=== PATIENT | female | born 1980 | race Caucasian/White ===

== ENCOUNTER 2016-08-25 10:53 | Inpatient (IN) | payer MEDICAID ==
[2016-02-04 10:45] VITALS: BMI 22.3
[2016-08-25] MEDS ORDERED: Magnesium Sulfate 4 gm/100 ml 4 GM/100 ML BAG IVPB ONE (11:27)
[2016-08-25] MEDS ORDERED: Labetalol 25mg/5ml Syringe IVP STA (11:29)
[2016-08-25] MEDS ORDERED: Magnesium Sulfate 20 gm 500 ML IV SCH (11:30)
[2016-08-25] MEDS ORDERED: Magnesium Sulfate 20 gm 500 ML IV ONE ×3 (11:39→21:41)
[2016-08-25 12:34] LABS: BASO % 0.5 % (0.0-2.0); EOS # 0.1 K/uL (0.0-0.7); EOS % 1.2 % (0.0-4.0); HEMATOCRIT 33.6 % (34.0-47.0); LYMPH # 2.5 K/uL (1.0-4.3); LYMPH % 27.6 % (20.0-40.0); MEAN CELL VOLUME 91.4 fL (81.0-99.0); MEAN CORPUSCULAR HEMOGLOBIN 30.5 pg (27.0-31.0); MEAN CORPUSCULAR HGB CONC 33.3 g/dL (33.0-37.0); MEAN PLATELET VOLUME 12.7 fL (7.2-11.7); MONO # 0.6 K/uL (0.0-0.8); MONO % 7.1 % (0.0-10.0); RED CELL DISTRIBUTION WIDTH 14.3 % (11.5-14.5); WHITE BLOOD COUNT 9.1 K/uL (4.8-10.8)
[2016-08-25 12:42] LABS: CHLORIDE 104 mmol/L (98-107); POTASSIUM 4.1 mmol/L (3.6-5.2); SODIUM 135 mmol/L (132-148)
[2016-08-25 12:44] LABS: BILIRUBIN,TOTAL 0.7 mg/dL (0.2-1.3); GFR AFRICAN-AMERICAN > 60
[2016-08-25 12:45] LABS: ALKALINE PHOSPHATASE 167 U/L (38-126); ALT/SGPT 17 U/L (9-52); AST/SGOT 41 U/L (14-36); BLOOD UREA NITROGEN 7 mg/dL (7-17); CALCIUM 7.9 mg/dl (8.6-10.4); CARBON DIOXIDE 21 mmol/L (22-30); GLUCOSE,RANDOM 63 mg/dL (65-105); INR 0.9; TOTAL PROTEIN 6.5 g/dL (6.3-8.3); URIC ACID 5.3 mg/dL (2.2-7.5)
--- NOTE | 2016-08-25 12:50 | OBHP ---
Datetime: 08/25/2016 11:30 IP Adm Impression: , intrauterine IP Adm Impression Other: elevated bp IP Admit Plan: Admit to unit Admit Comment, IP Provider: chief compalint-abdominal pain HPI 36 y/o at 36.2 wga with c/o abdominal pain which started this morning.states that she has nausea and vomiting yetserday and also had headache at that time.denies any headache or vision zarco es now.states she has surendra discomfort.has only had water since morning Patient states that she feels abdominal discomfort.does not feelks it as contractions denies vaginal bleeding or loss of fluid.reports active movement course uncompicated; PMH denies PSH denies OBGYN HX ' NVDX2; topx1 Social hx denies tobacco,alcohol or illicit drug use Exam see exam section A/P 36 y/o at 36.2wga with elevated bp .No active labor -admit -start magnesium for seizure prophylaxis -antihypertesnive.labetalol 20mg iv push if available. -pih labs -continuous monitoring Dr San aware Pelvic Type - PN: Adequate Extremities - PN: Normal Abdomen - PN: Normal Back - PN: Normal Lungs - PN: Normal Heart - PN: Normal Neurologic - PN: Normal General - PN: Normal Contraction Comments Provider: none Gestation - Est Wks by US: 36.2 EGA AdmitDate IP: 36.2 Vital Signs Provider: Reviewed Vital Signs Provider Details: initial bp on arrival 160-170s/100-110s IP Chief Complaint: Other FHR Category Provider Fetus A: Category I Dilatation, Provider: 0 Effacement, Provider: thick Station, Provider: high Genitourinary Exam: Normal DTRs - PN: Normal
[2016-08-25 13:18] LABS: RBC URINE 9 /hpf (0-3); URINE BACTERIA MOD (<OCC); URINE BILIRUBIN NEGATIVE (NEGATIVE); URINE BLOOD NEGATIVE (NEGATIVE); URINE COLOR Yellow (YELLOW); URINE GLUCOSE (UA) NORMAL (Normal); URINE KETONE NEGATIVE (NEGATIVE); URINE LEUKOCYTE ESTERASE 2+ Leu/uL (Negative); URINE PROTEIN 2+ mg/dL (NEGATIVE); URINE UROBILINOGEN NORMAL mg/dL (0.2-1.0); WBC URINE 9 /hpf (0-5)
--- NOTE | 2016-08-25 13:44 | OBADHP ---
Datetime: 08/25/2016 11:30 IP Adm Impression Other: elevated bp Admit Comment, IP Provider: chief compalint-abdominal pain HPI 36 y/o at 36.2 wga with c/o abdominal pain which started this morning.states that she has nausea and vomiting yetserday and also had headache at that time.denies any headache or vision zarco es now.states she has surendra discomfort.has only had water since morning Patient states that she feels abdominal discomfort.does not feelks it as contractions denies vaginal bleeding or loss of fluid.reports active movement course uncompicated; PMH denies PSH denies OBGYN HX ' NVDX2; topx1 Social hx denies tobacco,alcohol or illicit drug use Exam see exam section A/P 36 y/o at 36.2wga with elevated bp .No active labor -admit -start magnesium for seizure prophylaxis -antihypertesnive.labetalol 20mg iv push if available. -pih labs -continuous monitoring Dr San aware agree with above Kalin San Pelvic Type - PN: Adequate Extremities - PN: Normal Abdomen - PN: Abnormal Back - PN: Normal Lungs - PN: Normal Heart - PN: Normal Neurologic - PN: Normal General - PN: Normal Contraction Comments Provider: none Comments, ACOG Physical Exam: +RUQ tenderness Gestation - Est Wks by US: 36.2 Vital Signs Provider: Reviewed Vital Signs Provider Details: initial bp on arrival 160-170s/100-110s IP Chief Complaint: Other FHR Category Provider Fetus A: Category I Dilatation, Provider: 0 Effacement, Provider: thick Station, Provider: high Genitourinary Exam: Normal DTRs - PN: Normal EGA AdmitDate IP: 35.3 IP Adm Impression: , intrauterine IP Admit Plan: Admit to unit Datetime: 06/16/2016 11:55 Breast - PN: Not Done Thyroid - PN: Not Done HEENT - PN: Normal FHR - Baseline A Provider: 145 NICHD Variability Prov Fetus A: Moderate 6-25bpm NICHD Accel Fetus A IP Provider: 10X10 NICHD Decel Fetus A IP Provider: None
[2016-08-25] MEDS ORDERED: Morphine 1 mg/ml preservative-free Inj(Duramorph) ONE (13:49)
[2016-08-25] MEDS ORDERED: Phenylephrine 10 mg/ml Inj ONE (13:49)
[2016-08-25] MEDS ORDERED: Sodium Citrate/Citric Acid 15 ml Sol PO ONE (13:50)
--- NOTE | 2016-08-25 15:17 | OBDS ---
DELIVERY PERSONNEL Delivery Doctor: Bita San MD Scrub Nurse: Manisha Montgomery OBT Special Tester: Tameka May RN Anesthesiologist: AD MATERNAL INFORMATION Delivery Anesthesia: Spinal Medications in Delivery: pitocin 20 Estimated Blood Loss (ml): 70 Placenta Cultured: Yes Maternal Complications: Other Other Maternal Complications: preeclampcia Provider Comments: live male ifnat DARA position, body cord x 1, no nuchal cord. apgars 8,9 weight of 4lb 8 ounces, normal tubes adn ovaries bilatearlly. label press operator present for delivery ebl 700ml LABOR SUMMARY EDC: 09/26/2016 00:00 No. Babies in Womb: 1 Attempted: No Labor Anesthesia: None LABOR INFORMATION Oxytocin: N/A Group B Beta Strep: Not Done Antibiotics # of Doses: 1 Antibiotics Time of Last Dose: 13:55 Steroids Given: None Reason Steroids Not Administered: Not Applicable MEMBRANES Membranes Rupture Method: Artificial Rupture of Membranes: 08/25/2016 14:16 Length of Rupture (hrs): 0.00 Amniotic Fluid Color: Clear Amniotic Fluid Amount: Moderate Amniotic Fluid Odor: Normal STAGES OF LABOR Stage 3 hrs: 0 Stage 3 min: 1 VAGINAL DELIVERY Episiotomy: None Laceration Extension: N/A Laceration Type: None CSECTION DELIVERY Primary Indication: severe preeclampcia Secondary Indication: N/A CSection Urgency: Emergency CSection Incidence: Primary Labor: No Labor Elective: Nonelective CSection Incision: Lower Uterine Transverse BABY A INFORMATION Delivery Date/Time: 08/25/2016 14:16 Method of Delivery: Vaginal Born in Route : No : N/A Forceps: N/A Vacuum Extraction: N/A Shoulder Dystocia : No SHOULDER DYSTOCIA BABY A Infant Delivery Date/Time: 08/25/2016 14:16 PRESENTATION/POSITION BABY A Presentation: Cephalic Cephalic Presentation: Vertex Breech Presentation: N/A PLACENTA INFORMATION BABY A Placenta Delivery Time : 08/25/2016 14:17 Placenta Method of Delivery: Manual Removal Placenta Status: Delivered SCORES BABY A Heart Rate 1 min: >100 bpm Resp Effort 1 min: Good Cry Reflex Irritability 1 min: Cough or Sneeze or Pulls Away Muscle Tone 1 min: Some Flexion of Extremities Color 1 min: Body [place], Extremities Blue Resuscitation Effort 1 min: Tactile Stimulation SCORE 1 MIN: 8 Heart Rate 5 min: >100 bpm Resp Effort 5 min: Good Cry Reflex Irritability 5 min: Cough or Sneeze or Pulls Away Muscle Tone 5 min: Active Motion Color 5 min: Body [place], Extremities Blue SCORE 5 MIN: 9 INFORMATION BABY A Gestational Age at Delivery: 36.2 Gestational Status: Infant Outcome : Liveborn Condition : Stable Infant Sex: Male IDENTIFICATION/MEDS BABY A ID Band Number: [id number] ID Band Location: Left Leg; Left Arm Sensor Applied: Yes Sensor Number: [id number] Sensor Location : Cord Clamp WEIGHT/LENGTH BABY A Birthweight (gms): 2045 Weight (lb): 4 Weight (oz): 8 Infant Length Inches: 18.25 Infant Length cms: 46.4 CORD INFORMATION BABY A No. Cord Vessels: 3 Nuchal Cord : Around Neck x1, Loose Cord Blood Taken: Yes Infant Suction: Mouth; Nose ASSESSMENT BABY A Infant Complications: None Physical Findings at Delivery: Within Normal Limits Respirations: Appears Normal Mental Health Practitioner/ALS Called : No Infant Care By: dr andrews Transferred To: Nursery
--- NOTE | 2016-08-25 15:19 | PCM.SURG1 ---
Surgeon's Initial Post Op Note - Surgeon's Notes Surgeon: Nataly Sna MD Parking Meter Installer: Rohith Mohan MD Type of Anesthesia: Spinal Pre-Operative Diagnosis: with severe preeclampsia, remote from delivery Operative Findings: live male infant , body cord x 1 easily reducted, normal tubes and ovaries bilaterally. pediatricina present for delivery. apgars 8,9 weight of 4lb [address] Rohith Mohan was surgical technologist and essential in gainign entry, retraction, expsoure, ehlping to delivery the baby, closing all layers, obtaining hemotasis, holding the bladder blade. Post-Operative Diagnosis: same as above Operation Performed: Primary Low transverse Cesearen section Specimen/Specimens Removed: placenta Estimated Blood Loss: EBL {In ML}: 700 Blood Products Given: N/A Drains Used: No Drains Post-Op Condition: Good Date of Surgery/Procedure: 08/25/16 Time of Surgery/Procedure: 14:00
--- NOTE | 2016-08-25 15:56 | OP ---
PROCEDURE DATE: 08/25/2016 SURGEON: Dr. Nataly San. TEAM SPORTS SALES ASSOCIATE: Dr. Rohith Mohan. TYPE OF ANESTHESIA: Spinal. PREOPERATIVE DIAGNOSES: with severe preeclampsia, remote from delivery. POSTOPERATIVE DIAGNOSES: with severe preeclampsia, remote from delivery. OPERATIVE FINDINGS: Live male with a body cord x 1 easily reduced. Normal tubes and ovaries bilaterally. Moving Picture Operator present for delivery. Apgars 8 and 9. Weight of [address] Rohith Mohan was the assistant spa director and was essential in gaining entry, retraction, exposure , holding the bladder blade, delivering the baby, closing all layers, obtaining hemostasis. OPERATION PERFORMED: Primary low transverse section. SPECIMEN REMOVED: Placenta. ESTIMATED BLOOD LOSS: 700 mL. BLOOD PRODUCTS: None. COMPLICATIONS: None. DESCRIPTION OF PROCEDURE: The patient was taken to the operating room where she was given spinal ane sthesia after she was given magnesium. The patient was then prepped and draped in the usual normal s terile fashion, a timeout to confirm correct patient and correct procedure. Hollis was then introduce d into the bladder. The patient was given preoperative prophylactic antibiotics. The Pfannenstiel s kin incision was made with a scalpel and carried down to the underlying fascia. The fascia was incis ed in midline. Incision was extended laterally bluntly. The rectus muscles were then bluntly separa puma in the midline. Peritoneum identified, entered bluntly in a clear space. Incision extended late rally and inferiorly until there was good visualization of the bladder. The lower end of the Darrius was then inserted and the lower uterine segment was incised in a transverse fashion with the scalpel . The uterine incision was extended laterally bluntly. The surgeon's hand entered the uterine cavit y. The bladder blade was then removed. The infant's head was delivered atraumatically, no nuchal co rd was noted; followed by atraumatic delivery of the shoulders and the body. Body cord x 1 was noted and easily reduced. The umbilical cord was clamped and cut and the baby was handed off to the [facility] deck mechanic. Cord blood and cord gas was collected and sent x 2. The placenta was then delivere d manually. The uterus exteriorized, cleared of all clots and debris. The uterine incision was repa ired with 0 Vicryl in running continuous locked fashion, second layer with same suture was used to cl ose uterus in a running imbricated manner. The uterus was then returned to the abdomen. The paracol ic gutters were cleared of all clots and debris. The peritoneum was reapproximated and closed with 2 -0 chromic in a running continuous fashion. The rectus was reapproximated with 2-0 chromic in interr upted manner. The subcutaneous tissue was closed with 2-0 plain in interrupted manner. The skin was reapproximated and closed with 4-0 Monocryl in a running subcuticular fashion. At the end of the pr ocedure, all needle, sponge and instrument counts were noted to be correct x 2. The patient tolerate d the procedure well and was transferred to the recovery room in stable condition. Nataly San MD cc: [id number] TT: 08/25/2016 15:55:47 [place]
[2016-08-25] MEDS ORDERED: Morphine Monoject Barrel PCA 1mg/ml IV PRN (16:32)
[2016-08-25 19:14] LABS: BASO % 0.2 % (0.0-2.0); EOS % 0.2 % (0.0-4.0); HEMATOCRIT 38.7 % (34.0-47.0); LYMPH # 2.4 K/uL (1.0-4.3); LYMPH % 11.8 % (20.0-40.0); MEAN CORPUSCULAR HEMOGLOBIN 29.4 pg (27.0-31.0); MEAN PLATELET VOLUME 12.9 fL (7.2-11.7); MONO % 4.9 % (0.0-10.0); RED CELL DISTRIBUTION WIDTH 14.1 % (11.5-14.5)
[2016-08-25 19:34] LABS: CHLORIDE 99 mmol/L (98-107); POTASSIUM 4.1 mmol/L (3.6-5.2); SODIUM 135 mmol/L (132-148)
[2016-08-25 19:36] LABS: AST/SGOT 35 U/L (14-36); BILIRUBIN,TOTAL 0.6 mg/dL (0.2-1.3); CARBON DIOXIDE 24 mmol/L (22-30); GFR AFRICAN-AMERICAN > 60
[2016-08-25 19:37] LABS: ALKALINE PHOSPHATASE 167 U/L (38-126); ALT/SGPT 22 U/L (9-52); BLOOD UREA NITROGEN 5 mg/dL (7-17); CALCIUM 7.6 mg/dl (8.6-10.4); GLUCOSE,RANDOM 66 mg/dL (65-105); MAGNESIUM 4.8 mg/dL (1.6-2.3); TOTAL PROTEIN 6.1 g/dL (6.3-8.3); URIC ACID 5.1 mg/dL (2.2-7.5)
[2016-08-25] MEDS ORDERED: cefOXitin IV 2 gm in Dextrose 2 GM/50 ML BAG IVPB ONE (21:41)
[2016-08-25] MEDS: cefOXitin IV 2 gm in Dextrose 2 GM/50 ML BAG IVPB SCH (21:46)
[2016-08-25] MEDS: Magnesium Sulfate 20 gm 500 ML IV SCH (21:48)
[2016-08-26] MEDS ORDERED: cefOXitin IV 2 gm in Dextrose 2 GM/50 ML BAG IVPB ONE ×2 (05:44→13:24)
[2016-08-26] MEDS: cefOXitin IV 2 gm in Dextrose 2 GM/50 ML BAG IVPB SCH ×2 (05:50→13:37)
[2016-08-26] MEDS: Magnesium Sulfate 20 gm 500 ML IV SCH (07:30)
[2016-08-26] MEDS ORDERED: Magnesium Sulfate 20 gm 500 ML IV ONE (09:06)
[2016-08-26] MEDS ORDERED: Oxycodone/Acetaminophen 5/325 mg Tab ONE (10:27)
[2016-08-26] MEDS: Oxycodone/Acetaminophen 5/325 mg Tab PO PRN ×3 (10:30→23:17)
[2016-08-26 17:05] LABS: BASO % 0.1 % (0.0-2.0); EOS # 0.1 K/uL (0.0-0.7); EOS % 0.3 % (0.0-4.0); HEMATOCRIT 29.8 % (34.0-47.0); LYMPH # 1.9 K/uL (1.0-4.3); LYMPH % 12.2 % (20.0-40.0); MEAN CELL VOLUME 92.1 fL (81.0-99.0); MEAN CORPUSCULAR HEMOGLOBIN 30.1 pg (27.0-31.0); MEAN CORPUSCULAR HGB CONC 32.6 g/dL (33.0-37.0); MEAN PLATELET VOLUME 11.6 fL (7.2-11.7); MONO # 0.7 K/uL (0.0-0.8); MONO % 4.8 % (0.0-10.0); RED CELL DISTRIBUTION WIDTH 15.1 % (11.5-14.5); WHITE BLOOD COUNT 15.6 K/uL (4.8-10.8)
[2016-08-27] MEDS: Oxycodone/Acetaminophen 5/325 mg Tab PO PRN ×3 (05:01→21:13)
[2016-08-28] MEDS ORDERED: Labetalol 5 mg/ml Inj 20ML IVP STA (02:38)
[2016-08-28] MEDS: Oxycodone/Acetaminophen 5/325 mg Tab PO PRN ×4 (04:13→20:11)
[2016-08-28] MEDS: NIFEdipine 30 mg ER Tab PO SCH (13:18)
[2016-08-28 14:06] LABS: CHLORIDE 97 mmol/L (98-107)
[2016-08-28 14:07] LABS: POTASSIUM 3.9 mmol/L (3.6-5.2); SODIUM 133 mmol/L (132-148)
[2016-08-28 14:09] LABS: ALB/GLOB RATIO 0.8 (1.0-2.1); ALKALINE PHOSPHATASE 103 U/L (38-126); AST/SGOT 52 U/L (14-36); BILIRUBIN,TOTAL < 0.1 mg/dL (0.2-1.3); BLOOD UREA NITROGEN 5 mg/dL (7-17); CARBON DIOXIDE 31 mmol/L (22-30); GFR AFRICAN-AMERICAN > 60; GLUCOSE,RANDOM 77 mg/dL (65-105)
[2016-08-28 14:10] LABS: ALT/SGPT 33 U/L (9-52); CALCIUM 8.6 mg/dl (8.6-10.4)
--- NOTE | 2016-08-28 15:08 | CP.PCM.CON ---
History of Present Illness - History of Present Illness History of Present Illness: 36 yo F w/ no significant pmh, presented 3 days ago at 36 weeks gestation with abdominal pain, nausea/vomiting and headache; found to have elevated BP (160's- 170's/100's-110's) and 2+ proteinuria by dipstick; patient given IV Magnesium for seizure prophylaxis and subsequently underwent emergent the same day for severe pre-eclampsia; patient started on labetalol 200 mg q8h with good BP control until last night when BP again increased to 164/104; meds subsequently changed to hydralazine 10 mg q6h with temporary improvement in BP before again increasing; nephrology service being consulted for htn in pre- eclamptic patient in post- setting; Patient reports feeling well; denies any headaches currently; has some brief periods of shortness of breath associated with slight chest and back pain; also with bilateral leg swelling since past 2 weeks; reports some swelling of hands as well but no joint pains; no more nausea/vomiting, good appetite and tolerating diet well; denies any frothiness of urine; Review of Systems - Constitutional Constitutional: Chills. absent: Anorexia - EENT Eyes: absent: Blurred Vision, Change in Vision Ears: absent: Decreased Hearing, Ear Pain Nose/Mouth/Throat: absent: Nasal Discharge, Sinus Pain - Cardiovascular Cardiovascular: As Per HPI - Respiratory Respiratory: absent: Cough - Gastrointestinal Gastrointestinal: absent: Abdominal Pain, Nausea, Vomiting - Genitourinary Genitourinary: absent: Difficulty Urinating, Dysuria - Musculoskeletal Musculoskeletal: absent: Arthralgias - Integumentary Integumentary: absent: Rash Additional comments: Itching over much of body since past 2 days; - Neurological Neurological: absent: Dizziness, Headaches - Psychiatric Psychiatric: absent: Anxiety, Depression - Hematologic/Lymphatic Hematologic: absent: Easy Bleeding Past Patient History - Infectious Disease Hx of Infectious Diseases: None - Tetanus Immunizations Tetanus Immunization: Unknown - Past Medical History & Family History Past Medical History?: No Pertinent Family History: Mother with htn, heart disease; - Past Social History Smoking Status: Never Smoked Alcohol: Occasional - PSYCHIATRIC Hx Psychophysiologic Disorder: No Hx Anxiety: No Hx Bipolar Disorder: No Hx Depression: No Hx Emotional Abuse: No Hx Hallucinations: No Hx Panic Symptoms: No Hx Post Traumatic Stress Disorder: No Hx Psychosis: No Hx Physical Abuse: No Hx Schizophrenia: No Hx Sexual Abuse: No Hx Substance Use: No - SURGICAL HISTORY Hx Surgeries: No - ANESTHESIA Hx Anesthesia: No Hx Anesthesia Reactions: No Hx Malignant Hyperthermia: No Meds Allergies/Adverse Reactions: Allergies Allergy/AdvReac Type Severity Reaction Status Date / Time No Known Allergies Allergy Verified 01/28/16 09:39 - Medications Medications: Current Medications Hydralazine HCl (Apresoline) 10 mg PO Q6H PRN PRN Reason: Systolic Blood Pressure Morphine Sulfate/Sodium Chloride (Morphine Metal Cut Off Saw Tender Monoject Barrel) 24 mg IV Q4H PRN; Protocol PRN Reason: Pain, moderate (4-7) Nifedipine (Procardia Xl) 30 mg PO DAILY ALISSA Last Admin: 08/28/16 13:18 Dose: 30 mg Oxycodone/Acetaminophen (Percocet 5/325 Mg Tab) 2 tab PO Q4H PRN PRN Reason: Pain, severe (8-10) Stop: 08/29/16 09:28 Last Admin: 08/28/16 09:18 Dose: 2 tab Physical Exam - Constitutional Appears: Well, No Acute Distress - Head Exam Head Exam: NORMAL INSPECTION - Eye Exam Eye Exam: EOMI, Normal appearance. absent: Scleral icterus Pupil Exam: absent: Unequal - ENT Exam ENT Exam: Mucous Membranes Moist - Neck Exam Neck exam: Positive for: Normal Inspection - Respiratory Exam Respiratory Exam: Clear to Auscultation Bilateral, NORMAL BREATHING PATTERN. absent: Rales, Rhonchi, Wheezes - Cardiovascular Exam Cardiovascular Exam: REGULAR RHYTHM, +S1, +S2. absent: JVD - GI/Abdominal Exam GI & Abdominal Exam: Soft. absent: Distended - Extremities Exam Extremities exam: Positive for: normal capillary refill, pedal pulses present Additional comments: 1+ bilateral lower leg edema; - Neurological Exam Neurological exam: Alert, Oriented x3 - Psychiatric Exam Psychiatric exam: Normal Affect, Normal Mood - Skin Skin Exam: Normal Color, Warm Results - Vital Signs Recent Vital Signs: Last Vital Signs Temp 98.3 F 08/28/16 02:00 Pulse 72 08/28/16 02:51 Resp 18 08/28/16 02:51 BP 164/104 H 08/28/16 02:51 Pulse Ox 98 08/28/16 02:51 - Labs Result Diagrams: 08/26/16 16:54 08/28/16 13:53 Labs: Laboratory Results - last 24 hr 08/28/16 13:53 Sodium 133 Potassium 3.9 Chloride 97 L Carbon Dioxide 31 H Anion Gap 9 L BUN 5 L Creatinine 0.8 Est GFR ( Amer) > 60 Est GFR (Non-Af Amer) > 60 Random Glucose 77 Calcium 8.6 Total Bilirubin < 0.1 L AST 52 H D ALT 33 Alkaline Phosphatase 103 Total Protein 6.0 L Albumin 2.8 L Globulin 3.3 Albumin/Globulin Ratio 0.8 L Assessment & Plan (1) Pre-eclampsia Assessment and Plan: HTN and proteinuria in 3rd trimester with patient symptomatic on presentation; now s/p emergency 3 days ago; currently asymptomatic although BP still elevated; no significant rise in serum creatinine (minimal amount of rise is expected as total body fluid volume decreases along with accompanying decrease in glomerular hyperfiltration); Hypertension in pre-eclamptic patients generally resolves soon after delivery but may persist for several months in some cases; -Should continue treatment with anti-htn agents for now as SBP > 160 on multiple occasions; -Will check random urine protein and creatinine to quantify proteinuria Status: Acute (2) Hypertension, condition or complication Assessment and Plan: Secondary to pre-eclampsia; no need for overly tight BP control as htn should resolved over time; goal SBP < 150 and DBP < 100; -Anti-htn regimen changed to Nifedipine XL 30 mg daily -Hydralazine 10 mg PO prn q6h for SBP > 160 or DBP > 110 while patient still admitted (if this occurs, should wait a few minutes and recheck BP) -Should have BP check q1-2 weeks in order to discontinue BP med when SBP < 130 or DBP < 80 Status: Acute (3) Proteinuria affecting in third trimester Assessment and Plan: Secondary to pre-eclampsia as UA was negative for protein during earlier part of ; overall prognosis is very good despite increased group home incidences of ESRD in pre-eclamptics; -checking random urine protein and creatinine Status: Acute (4) Proteinuria Status: Acute (5) pain Assessment and Plan: Would avoid NSAIDS in the harjinder- setting for pre-eclamptic patient as this can worsen htn as well as potentially cause renal impairment; -Tylenol prn Status: Acute
[2016-08-28 23:58] LABS: IRON 67 ug/dL (37-170)
[2016-08-29 00:16] VITALS: RESP 20
[2016-08-29] MEDS: Oxycodone/Acetaminophen 5/325 mg Tab PO PRN ×2 (00:41→06:46)
[2016-08-29 01:04] LABS: FOLATE 11.8 ng/mL
--- NOTE | 2016-08-29 07:26 | CON ---
DATE: 08/28/2016 CHIEF COMPLAINT: High blood pressure, swelling of the lower extremity. HISTORY OF PRESENT ILLNESS: The patient is a 36-year-old female with no significant past medical history presented at 36-week gestation with abdominal pain, nausea, vomiting and headache, found to have elevated blood pressure 151/ 70, but 110 and +2 proteinuria by dipstick. The patient was given IV magnesium for seizure prophylaxis and subsequently underwent emergent section the same day for severe preeclampsia. The patient started on labetalol 200 mg q. 8 hours with good blood pressure control until the last night when blood pressure again increased to 154/104. Medicine subsequently changed to hydralazine 10 mg q. 6 hours with temporary improvement in blood pressure before again increasing, so the primary care physician consult was called, but I called gas appliance installer, Dr. Kenneth Shirley, for hypertension control and preeclampsia. The patient in the setting. The patient had section and has swelling of the legs also. The patient reports feeling well. Right now when I saw the patient in her room, she was pumping milk for her baby in the water and was denying headache, but still having swelling of the legs. No shortness of breath, no chest pain. Still some swelling of the hands as well , but no joint pains. No nausea, vomiting, diarrhea. No hematuria or hematochezia. No fever, no chills. PAST MEDICAL HISTORY: As above, SOCIAL HISTORY: Never smoked. No drugs, no ethanol, just drinking occasionally. FAMILY HISTORY: Mother has hypertension and heart disease. REVIEW OF SYSTEMS: The patient seen and examined at the bedside, still having swelling of the legs, especially feet. Blood pressure is getting better, but still high. No shortness of breath. No fever, no chills, nausea, vomiting, diarrhea. No hematuria or hematochezia. No headache or dizziness. PHYSICAL EXAMINATION: VITAL SIGNS: Temperature 98.3, pulse 72, respiratory rate 18, blood pressure 154/104, pulse oximetry 98. HEENT: Head normocephalic, atraumatic. Eyes: PERRLA. Extraocular muscles intact. Conjunctivae clear. Nose patent. Mucous membranes moist. NECK: Supple. No carotid bruits, JVD or thyromegaly. CHEST: Bilateral symmetrical. HEART: S1, S2 positive. LUNGS: Clear to auscultation. ABDOMEN: Soft. Bowel sounds positive. No organomegaly. EXTREMITIES: Positive edema, no cyanosis. NEUROLOGIC: The patient awake, alert, moving all 4 extremities. No focal deficit. ALLERGIES: The patient is not allergic with any medications. MEDICATIONS: Hydralazine, morphine, nifedipine, oxycodone. LABORATORY DATA: White blood cells 15.6, hemoglobin 9.7, hematocrit 29.8, platelets 149. Sodium 130, potassium 3.9, BUN 5, creatinine 0.8, glucose of 77. ASSESSMENT AND PLAN: The patient is a 36-year-old lady with leukocytosis, anemia, hypochloremia, has preeclampsia. She has hypertension, proteinuria in third trimester with symptomatic on presentation, emergency section. The patient is asymptomatic, although the blood pressure is still elevated, still has swelling of the legs. most of the cases it should resolved after delivery, but may persist for several months in some cases. We will monitor her blood pressure. She will continue treatment with antihypertensive medication. For now, systolic blood pressure more than 160 on multiple occasions. We will check a random urine protein and creatinine to qualify proteinuria. Discussion done with Dr. Kenneth Shirley. Appreciated his notes. Thank you very much for consult. Gastrointestinal and deep venous thrombosis prophylaxis. Repeat labs. We will follow up. thanks dr cantrell for consult. Terrie Peters MD cc: [id number] TT: 08/29/2016 07:25:13 Confirmation # [id number] Dictation # [id number] norah MTDD
[2016-08-29 07:59] LABS: HEMATOCRIT 32.6 % (34.0-47.0); MEAN CELL VOLUME 91.2 fL (81.0-99.0); MEAN CORPUSCULAR HEMOGLOBIN 30.2 pg (27.0-31.0); MEAN CORPUSCULAR HGB CONC 33.1 g/dL (33.0-37.0); MEAN PLATELET VOLUME 10.7 fL (7.2-11.7); RED CELL DISTRIBUTION WIDTH 14.6 % (11.5-14.5); WHITE BLOOD COUNT 11.1 K/uL (4.8-10.8)
[2016-08-29] MEDS: NIFEdipine 30 mg ER Tab PO SCH (09:53)
[2016-08-29] MEDS ORDERED: Oxycodone/Acetaminophen 5/325 mg Tab PO PRN (13:16)
[2016-08-29] MEDS ORDERED: Magnesium Hydroxide Susp 30 ml UD PO ONE (15:05)
--- NOTE | 2016-08-29 15:10 | OBPPN ---
Datetime: 08/29/2016 15:05 PP Pain Prov: Within normal limits PP Nausea Prov: Denies PP Flatus Prov: Yes PP BM Prov: No PP Breasts Prov: Normal PP Heart Prov: Normal PP Lungs Prov: Normal PP Abdomen/Uterus Prov: Normal PP Lochia Prov: Normal PP Vulva/Perineum Prov: Normal PP CVA Tenderness Prov: Normal PP Extremities Prov: Normal PP C/S Incision Prov: Normal PP Progress Prov: Not Applicable PP Comments Phys Exam Prov: Breast: non engorged b/l Abd: softn< NT, ND, +BS Incsion C/D/I steri strips intact Fundus: firm, below level of umbiculs mnimal lochia non ful smelling EXT negateiv bhargavi's sign, no calf tenderness b/l PP Impression Prov: Normal progression PP Plan Prov: Continue present management PP Progress Note Prov: Pt seen and examined and reports feelign better. pt reports passing a lot of gas but has not had good BM. Pt denies any headaches, blurry vision, RUQ/epigastirc pain, lighthteadn ess, dizzyness, CP, SOB. Pt would liek to go home. pt denies any pain, is ambuating, voiding, without difficulty, tolerating regular diet. pt states baby is doing well and will likley be dsicharge mari i n 2 days. VS: 130-140/ 70-90 PE see above A/P s/p PLTCS POD #4 with severe preeclamsia with now superimnpose HTN -s/p nephrology consult appreciated: Cleared for d/c -s/p Medicine consult appreciated -For Milk of magnesia/ rectal suppostiry -Possible d/c today -BP parameter/ montioring/ precautiosn given -RTO 1 week for incsion/ Bp check IP PP Procedures: None Vital Signs Provider PP: Reviewed
--- NOTE | 2016-08-29 15:12 | OBDCSUM ---
Datetime: 08/29/2016 13:54 Discharged to, Provider: Home Follow up at, Provider: Dr. San Disch Instr Activity: Normal activity Disch Instr Diet: Regular Discharge Instructions, Provider: Routine instructions given Discharge Diagnosis, Provider: Preeclampsia; Delivery Discharge Time: 08/29/2016 13:55 Follow up in weeks, Provider: 08/31/16 Disch Referrals: None Contraception discussed, Prov: Yes Disch Activity Restrictions: No exercising; No lifting; No sexual activity; Nothing in vagina - Inte rcourse, tampons, douche Discharge Comment, Provider: if headaches, blurry vision, severe remy, heavy bleedign go to nearest E R and call MD peoples BP medication as prescribed f/u OBGYN ad PCP in 1 week Contraception after Delivery: Not Planning to Use
--- NOTE | 2016-08-29 15:17 | OBPPN ---
Datetime: 08/27/2016 09:20 PP Pain Prov: Within normal limits PP Nausea Prov: Denies PP Flatus Prov: Yes PP BM Prov: No PP Breasts Prov: Normal PP Heart Prov: Normal PP Lungs Prov: Normal PP Abdomen/Uterus Prov: Normal PP Lochia Prov: Normal PP Vulva/Perineum Prov: Normal PP CVA Tenderness Prov: Normal PP Extremities Prov: Normal PP C/S Incision Prov: Normal PP Progress Prov: Not Applicable PP Impression Prov: Normal progression; Induced Hypertension PP Plan Prov: Continue present management IP PP Procedures: None Vital Signs Provider PP: Reviewed Datetime: 08/26/2016 08:00 PP Progress Note Prov: pt seen and examined with no complaints, denies pain. not yet mabuting, still on magnesium. Pt denies any headaches, blurry vision, RUq/epsgiast pain. Pt is hungry. pt reports ba by was transferred and will try to pump breast milk VS as above PE as aove a/p s/p PLTCS POD #1 with severe prelcmais -cont magnesum x 24 hour -cont in/ out, preeclmapit labs, urien output, scds -d/c magnesium at 24 hours postoop 3pm -close observation of bp -once d/c mag, up out of bed, ambuate with assistance, advacen diet as tolerated Vital Signs Provider Details PP: pt still on manesium BP range 120-140/70-90
--- NOTE | 2016-08-29 15:19 | OBPPN ---
Datetime: 08/28/2016 08:00 PP Pain Prov: Within normal limits PP Nausea Prov: Denies PP Flatus Prov: Yes PP Breasts Prov: Normal PP Heart Prov: Normal PP Lungs Prov: Normal PP Abdomen/Uterus Prov: Normal PP Lochia Prov: Normal PP Vulva/Perineum Prov: Normal PP CVA Tenderness Prov: Normal PP Extremities Prov: Normal PP C/S Incision Prov: Normal PP Progress Prov: Not Applicable PP Impression Prov: Normal progression; Induced Hypertension PP Plan Prov: Continue present management IP PP Procedures: None Vital Signs Provider PP: Reviewed Vital Signs Provider Details PP: BP Elevated Datetime: 08/27/2016 09:20 PP Progress Note Prov: pt sen and examine dreprots pain controlled with medication, pt tolerating re gular diet, ambuating, voiding, passign flatus, breat pumping, no complaints, denies any headaches, b lurry vision, ruq/epigastric pian VS: 120-150/70-90s PE see above A/P s/p PLTCS POD #2 with severe preclampsia s/p Mg Sulfate x 24 ho urs, currently stable -cont bp oversvation, possible Labetaol 200mg BID/ TID as eneded -cont current post op manamgnet
--- NOTE | 2016-08-29 15:21 | OBPPN ---
Datetime: 08/28/2016 08:00 PP Progress Note Prov: Called by nurse several times overnight due to increasing elevated BP despite starting labetaol 200mg, and BP increasing to 160/100+, (pharmacy denied IV Hydaralize) pt given IVP Labetaol with poor response, s/p hydralize 10mg with improved of BP. Pt seen this morning denies a ny headache, blurry vision, RUQ/epigastric pain, lightheands, dizzyness, CP, SOB. Pt states abdominal pain is well controlled wiht medication. pt is ambauting without difficuty, voding, passing flatus, no vaginal bleeding VS as above PE as above A/P s/P PLTCS POD #3 with severe preeclampisa with superimposed HTN -For Medicine Consult -cont Hydralizne 10mg po qid for now, bp paramater if >160/100 may rquire IVP -cont current routine postop management
[2016-08-29 16:19] VITALS: BP 123/78; PULSE 95; TEMP 98.9; O2SAT 96
--- NOTE | 2016-08-30 06:32 | PN ---
DATE: 08/29/2016 SUBJECTIVE: The patient was seen and examined on the bedside, looks comfortable. Swelling of the leg is better, excited to go home. No nausea, vomiting, or diarrhea. No hematuria or hematochezia. No headache, no dizziness. PHYSICAL EXAMINATION: VITAL SIGNS: Temperature 98.9, pulse 95, blood pressure 123/78, respiratory rate 20. HEENT: Head normocephalic, atraumatic. Eyes: PERRLA. Extraocular muscles intact. Conjunctivae clear. Nose patent. Mucous membranes moist. NECK: Supple. No carotid bruit, JVD or thyromegaly. CHEST: Bilaterally symmetrical. HEART: S1, S2 positive. LUNGS: Clear to auscultation. ABDOMEN: Soft. Bowel sounds positive. No organomegaly. EXTREMITIES: No edema, no cyanosis. NEUROLOGIC: The patient is awake, alert, moving all 4 extremities. No focal deficit. MEDICATIONS: Hydralazine, Dulcolax, milk of magnesia, morphine, Percocet, Procardia. LABORATORY DATA: White blood cells 11.1, hemoglobin 10.8, hematocrit 32.6, and platelets 209. Sodium 133, potassium 3.9, BUN 5, creatinine 0.8. Magnesium 5.7 , iron 13 saturation. Triglyceride 267. Cholesterol 213. ASSESSMENT AND PLAN: The patient is a 36-year-old lady with hypochloremia, hypermagnesemia, hypercholesterolemia, hypertriglyceridemia, leukocytosis, anemia. RPR nonreactive. Hepatitis and human immunodeficiency virus are negative. Status post section. This is her third baby. The patient was getting labetalol for blood pressure, cannot get hydralazine IV. pain was well controlled. Postoperative day 3 with severe preeclampsia with superimposed hypertension. Nephrology, Dr. Cooper, is on the case. Actually, when we went to see the patient, the patient was already discharged by [facility] [employer] and my office gave appointment followup and appreciated consult. We will follow up as outpatient for blood pressure. Terrie Peters MD cc: [id number] TT: 08/30/2016 06:30:58 Confirmation # [id number] Dictation # [id number] [facility]
--- NOTE | 2016-08-30 19:19 | CP.PCM.PN ---
Subjective - Date & Time of Evaluation Date of Evaluation: 08/29/16 Time of Evaluation: 14:00 - Subjective Subjective: Patient reported feeling well, says leg swelling has improved, tolerating diet well; Objective - Vital Signs/Intake and Output Vital Signs (last 24 hours): Temp Pulse Resp BP Pulse Ox 98.9 F 95 H 20 123/78 96 08/29/16 16:00 08/29/16 16:00 08/29/16 16:00 08/29/16 16:00 08/29/16 16:00 - Labs Labs: 08/29/16 07:51 08/28/16 13:53 PT 9.4 SECONDS (9.7-12.2) L 08/25/16 12:27 INR 0.9 08/25/16 12:27 APTT 26 SECONDS (21-34) 08/25/16 12:27 - Constitutional Appears: Well, No Acute Distress - Head Exam Head Exam: NORMAL INSPECTION - Eye Exam Eye Exam: Normal appearance. absent: Scleral icterus - ENT Exam ENT Exam: Mucous Membranes Moist - Neck Exam Neck Exam: Normal Inspection - Respiratory Exam Respiratory Exam: Clear to Ausculation Bilateral, NORMAL BREATHING PATTERN. absent: Rhonchi, Wheezes, Respiratory Distress - Cardiovascular Exam Cardiovascular Exam: REGULAR RHYTHM, +S1, +S2. absent: Diastolic murmur, Gallop - GI/Abdominal Exam GI & Abdominal Exam: Soft - Extremities Exam Extremities Exam: Normal Capillary Refill Additional comments: Mild lower leg edema bilaterally; - Neurological Exam Neurological Exam: Alert, Awake - Psychiatric Exam Psychiatric exam: Normal Affect, Normal Mood - Skin Skin Exam: Normal Color, Warm Assessment and Plan (1) Pre-eclampsia Assessment & Plan: With htn and proteinuria, requiring pre-term ; effects prolonged post- but should resolve within several weeks; overall with good prognosis; -f/u with PMD, will recommend repeat UA in a few months to look for persistence of proteinuria (will discuss with PMD) Status: Acute (2) Hypertension, condition or complication Assessment & Plan: Responding well to Nifedipine XL 30 mg daily; continue same as outpatient; should f/u with pmd in 1-2 weeks; will likely not be needed for long; Status: Acute (3) Proteinuria affecting in third trimester Status: Acute (4) Proteinuria Assessment & Plan: Secondary to pre-eclampsia as previous UA showed no protein; unable to obtain quantified value of proteinuria but if repeat UA in a few months as outpatient is negative, further workup not needed; Status: Acute (5) pain Status: Acute
== END 2016-08-29 18:35 | disposition home or self-care (01) | DRG 651 ==
LOC: C.EROB 10:53 → C.4D 11:30 → C.4M 08-26 14:35
PROVIDERS: ADMIT Obstetrics & Gynecology; ATTEND Obstetrics & Gynecology
PROC: 10D00Z1 Extraction of Products of Conception, Low, Open Approach (ICD-10-PCS; principal; 2016-08-25)
DX: O14.14 Severe pre-eclampsia complicating childbirth (principal); O60.14X0 Preterm labor third trimester with preterm delivery third trimester, not applicable or unspecified; O69.81X0 Labor and delivery complicated by cord around neck, without compression, not applicable or unspecified; Z37.0 Single live birth; Z3A.36 36 weeks gestation of pregnancy